=== PATIENT | female | born 1980 | race Caucasian/White ===

== ENCOUNTER 2021-05-11 19:30 | Emergency (ER) | payer OTHER ==
[~2021-05-11 19:30] MED LIST: ANTIVERT 25MG T25 MG PO; BACTROBAN OINT22 GM EXT; FLEXERIL 10 MG10 MG PO; KLONOPIN TAB 00.5 MG PO; LEVAQUIN750 MG PO; LIPITOR TAB 2020 MG PO; LOPRESSOR 25 MG25 MG PO; NEURONTIN 300300 MG PO; PAXIL30 MG PO; PLAVIX 75 MG TA75 MG PO; QUETIAPINE FUM100 MG PO; SEROQUEL300 MG PO; ULTRAM50 MG PO; VIIBRYD40 MG PO
[2021-05-11 20:42] LABS: HEMOGLOBIN 14.7 gm/dl (12.3-15.3); RED BLOOD COUNT 4.73 M/UL (4.00-5.10); WHITE BLOOD COUNT 6.7 K/UL (4.5-11.0)
[2021-05-11 20:59] LABS: BUN/CREATININE RATIO 12 (0-10)
== END 2021-05-12 00:07 | disposition home or self-care (01) ==
LOC: ER1 19:30
PROVIDERS: Family Medicine
DX: U07.1 COVID-19 (principal); R06.02 Shortness of breath; F17.210 Nicotine dependence, cigarettes, uncomplicated; Z88.6 Allergy status to analgesic agent
CPT/HCPCS: 71045; 80053; 83615; 85025; 86140; 99284